=== PATIENT | male | born 1985 | race Caucasian/White ===

== ENCOUNTER 2022-03-18 10:52 | Emergency (ER) | payer OTHER ==
[2022-03-18 11:20] LABS: BASOPHIL 0.6 % (0-2); EOSINOPHIL 1.2 % (0-5); HCT 44.2 % (42.0-52.0); HGB 15.1 g/dl (13.2-18.0); LYMPHOCYTE 17.6 % (15-48); MCH 29.5 pg (25.0-31.0); MCHC 34.2 g/dL (32.0-36.0); MCV 86.5 fL (78.0-100.0); MPV 9.2 fL (6.0-9.5); NEUTROPHIL 72.8 % (41-80); NRBC 0; PLT 231 K/uL (150-400); RBC 5.11 M/uL (4.70-6.00); RDW 12.8 % (11.5-14.0)
[2022-03-18 11:39] LABS: BILIRUBIN NEGATIVE (NEGATIVE); BLOOD NEGATIVE Ery/uL (NEGATIVE); CLARITY CLEAR (CLEAR); COLOR YELLOW (YELLOW); GLUCOSE (U) TRACE mg/dL (NORMAL); LEUKOCYTES NEGATIVE Leu/uL (NEGATIVE); NITRITE NEGATIVE (NEGATIVE); PROTEIN NEGATIVE (NEGATIVE); SPECIFIC GRAVITY 1.025 (1.001-1.030); UROBILINOGEN 0.2 mg/dL (0.2-1.0); pH 6.5 (5.0-9.0)
[2022-03-18 11:42] LABS: ECSTASY (MDMA) POSITIVE (NEGATIVE); MARIJUANA (THC) POSITIVE (NEGATIVE); METHADONE NEGATIVE (NEGATIVE); OPIATES NEGATIVE (NEGATIVE)
[2022-03-18 11:43] LABS: AMPHETAMINES POSITIVE (NEGATIVE); BARBITURATES NEGATIVE (NEGATIVE); OXYCODONE NEGATIVE (NEGATIVE)
[2022-03-18 12:30] LABS: ALBUMIN 4.1 g/dL (3.4-5.0); BILIRUBIN - TOTAL 0.5 mg/dL (0.2-1.0); BUN/CREAT RATIO (CALC) 13.1 RATIO; CREATININE 0.99 mg/dL (0.67-1.17); GLOBULIN (CALCULATION) 3.7 g/dL; POTASSIUM 4.1 mmol/L (3.5-5.1); TOTAL PROTEIN 7.8 g/dL (6.4-8.2)
== END 2022-03-18 15:17 | disposition home or self-care (01) ==
LOC: FER 10:52
PROVIDERS: Emergency Medicine
DX: K80.50 Calculus of bile duct without cholangitis or cholecystitis without obstruction (principal); F17.200 Nicotine dependence, unspecified, uncomplicated; Z28.310 Unvaccinated for COVID-19
CPT/HCPCS: 36415; 76705; 80053; 80305; 81003; 84484; 85025; 93005; J1885; J2270; J2405

== ENCOUNTER 2022-06-02 16:16 | Emergency (ER) | payer SELFPAY ==
[2022-06-02 17:23] LABS: BASOPHIL 0.5 % (0-2); EOSINOPHIL 2.6 % (0-5); HCT 47.6 % (42.0-52.0); HGB 17.1 g/dl (13.2-18.0); LYMPHOCYTE 19.7 % (15-48); MCH 30.1 pg (25.0-31.0); MCHC 35.9 g/dL (32.0-36.0); MCV 83.7 fL (78.0-100.0); MONOCYTE 6.7 % (0-12); MPV 9.9 fL (6.0-9.5); NEUTROPHIL 69.2 % (41-80); NRBC 0; PLT 281 K/uL (150-400); RBC 5.69 M/uL (4.70-6.00); RDW 12.3 % (11.5-14.0); WBC 11.1 K/uL (4.0-10.5)
[2022-06-02 17:46] LABS: LACTIC ACID 1.5 mmol/L (0.4-1.9)
[2022-06-02 18:42] LABS: ALBUMIN 4.3 g/dL (3.4-5.0); BILIRUBIN - TOTAL 0.5 mg/dL (0.2-1.0); BUN/CREAT RATIO (CALC) 12.9 RATIO; CREATININE 1.01 mg/dL (0.67-1.17); GLOBULIN (CALCULATION) 3.9 g/dL; POTASSIUM 4.2 mmol/L (3.5-5.1); TOTAL PROTEIN 8.2 g/dL (6.4-8.2)
[2022-06-02 19:05] LABS: BILIRUBIN NEGATIVE (NEGATIVE); BLOOD NEGATIVE Ery/uL (NEGATIVE); CLARITY CLEAR (CLEAR); COLOR YELLOW (YELLOW); GLUCOSE (U) 1+ mg/dL (NORMAL); LEUKOCYTES NEGATIVE Leu/uL (NEGATIVE); NITRITE NEGATIVE (NEGATIVE); PROTEIN TRACE (LOW) mg/dL (NEGATIVE); UROBILINOGEN 0.2 mg/dL (0.2-1.0); pH 7.5 (5.0-9.0)
[2022-06-02 19:10] LABS: BARBITURATES NEGATIVE (NEGATIVE); ECSTASY (MDMA) NEGATIVE (NEGATIVE); MARIJUANA (THC) NEGATIVE (NEGATIVE); METHADONE NEGATIVE (NEGATIVE); OPIATES POSITIVE (NEGATIVE); OXYCODONE NEGATIVE (NEGATIVE)
[2022-06-02 19:11] LABS: AMPHETAMINES POSITIVE (NEGATIVE)
[2022-06-02 19:15] LABS: BACTERIA 1+; SQUAMOUS EPITHELIAL CELLS RARE; URINARY RBC RARE; URINARY WBC RARE
[2022-06-02 19:16] LABS: AMORPHOUS PHOSPHATE CRYSTALS MODERATE
[2022-06-02] MEDS ORDERED: ONDANSETRON ODT4 MG PO (20:30)
== END 2022-06-02 20:56 | disposition home or self-care (01) ==
LOC: FER 16:16
PROVIDERS: Emergency Medicine
DX: R10.11 Right upper quadrant pain (principal); E66.9 Obesity, unspecified; Z28.310 Unvaccinated for COVID-19
CPT/HCPCS: 36415; 80053; 80305; 81001; 83605; 83690; 85025; J1885; J2270; J2405